=== PATIENT | male | born 1970 | race Asian ===

== ENCOUNTER 2022-07-28 00:35 | Emergency (ER) | payer SELFPAY ==
[~2022-07-28] VITALS: Ht 182.9 cm; Wt 81.6 kg
[2022-07-28 00:35] VITALS: BP_SYST 150
--- NOTE | 2022-07-28 00:40 | NUR ---
Pt BIB law enforcement, for OK TO BOOK. Pt denies any pain at the moment and no signs of resp distress, even and unlabored resps noted. Pt has hx of DM, HTN, HLD, AND STROKE WITH LEFT SIDED DEFICITS.
--- NOTE | 2022-07-28 01:34 | NUR ---
DC PT ACCOMPANIED BY CREDIT CHECKER DUNCAN LEAL#[id number], PT [id number], NO SOB NOTED AND NOT IN ANY DISTRESS UPON DC. PT AMBULATED WITH STEADY OUT OF DEPT.
== END 2022-07-28 01:34 | disposition home or self-care (01) ==
LOC: SED 00:35
DX: Z02.89 Encounter for other administrative examinations (principal); E04.9 Nontoxic goiter, unspecified; R22.1 Localized swelling, mass and lump, neck; Z86.73 Personal history of transient ischemic attack (TIA), and cerebral infarction without residual deficits; Z79.899 Other long term (current) drug therapy
CPT/HCPCS: 99283